=== PATIENT | male | born 1980 | race Caucasian/White ===

== ENCOUNTER 2017-07-09 08:25 | Emergency (ER) | payer BC ==
--- NOTE | 2017-07-09 09:55 | UC ---
Respiratory Complaint HPI - HPI Summary HPI Summary: Pt presents with cough. He tells me that about 3-4 weeks ago he developed a dry cough. He treated himself conservatively with rest and fluids, but his symptoms persisted so he saw his PCP who said it was likely viral. He is here today with worsening symptoms. He feels that he cannot "good a good deep breath" and is experiencing chest congestion with his cough. He has felt warm, but has not taken his temperature. He denies headache, ST, sinus symptoms, SOB, chest pain, abdominal pain, N/V/D/C. - History of Current Complaint Chief Complaint: UCRespiratory Stated Complaint: COUGH Time Seen by Provider: 07/09/17 09:55 Hx Obtained From: Patient Onset/Duration: Gradual Onset Severity Initially: Mild Severity Currently: Moderate Character: Cough: Nonproductive Aggravating Factors: Deep Breaths Associated Signs And Symptoms: Positive: Fever - Allergies/Home Medications Allergies/Adverse Reactions: Allergies Allergy/AdvReac Type Severity Reaction Status Date / Time No Known Allergies Allergy Verified 07/09/17 08:49 Home Medications: Home Medications Multiple Vitamins W/ Minerals [Multivitamin] 1 tab PO DAILY 07/09/17 [History Confirmed 07/09/17] PMH/Surg Hx/FS Hx/Imm Hx Previously Healthy: Yes - Surgical History Surgical History: Yes Surgery Procedure, Year, and Place: tonsilectomy - Family History Known Family History: Positive: None - Social History Occupation: Employed Full-time Lives: With Family Alcohol Use: Rare Substance Use Type: None Smoking Status (MU): Never Smoked Tobacco - Immunization History Most Recent Influenza Vaccination: 03/2017 Review of Systems Constitutional: Fever Skin: Negative Eyes: Negative ENT: Negative Respiratory: Cough Cardiovascular: Negative Gastrointestinal: Negative All Other Systems Reviewed And Are Negative: Yes Physical Exam Triage Information Reviewed: Yes Appearance: Well-Appearing, Well-Nourished Vital Signs: Initial Vital Signs Temp 101.1 F 07/09/17 08:44 Pulse 103 07/09/17 08:44 Resp 18 07/09/17 08:44 BP 120/78 07/09/17 08:44 Pulse Ox 96 07/09/17 08:44 Vital Signs Reviewed: Yes Eyes: Positive: Conjunctiva Clear. Negative: Conjunctiva Inflamed, Discharge ENT: Positive: Hearing grossly normal, Pharynx normal, TMs normal, Uvula midline. Negative: Pharyngeal erythema, Nasal congestion, Nasal drainage, TM bulging, TM dull, TM red, Tonsillar swelling, Tonsillar exudate, Sinus tenderness Neck: Positive: Supple, Nontender, No Lymphadenopathy Respiratory: Positive: Chest non-tender, No respiratory distress, No accessory muscle use, Crackles - RLL, Wheezing - RLL Cardiovascular: Positive: RRR, No Murmur, Pulses Normal Neurological: Positive: Alert Psychological: Positive: Age Appropriate Behavior Skin: Negative: rashes UC Diagnostic Evaluation - Laboratory O2 Sat by Pulse Oximetry: 96 Re-Evaluation - Re-Evaluation First Eval Re-Evaluation Time: 10:45 Change: Improved Comment: Lung sounds significantly improved. Decreased wheezing throughout. Still with mild crackles RLL Respiratory Course/Dx - Course Course Of Treatment: CXR today: IMPRESSION: RIGHT BASILAR LINEAR ATELECTASIS VERSUS PLEUROPARENCHYMAL SCARRING. Duoneb - lung sounds improved. Decreased wheezing throughout. Still with crackles RLL. Pt felt better and was able to get a "deep breath" after duoneb. Clinical dx of pneumonia with atelectasis on CXR. Will treat with Zpak and albuterol. - Differential Dx/Diagnosis Differential Diagnosis/HQI/PQRI: Asthma, Bronchitis, Influenza, Lower Resp Infection, Tuberculosis, Other - Pneumonia. Provider Diagnoses: Pneumonia RLL Discharge - Discharge Plan Condition: Stable Disposition: HOME Prescriptions: Albuterol HFA INHALER* [Ventolin HFA Inhaler*] 2 puff INH Q6H PRN #1 mdi PRN Reason: Sob/Wheezing Azithromycin TAB* [Zithromax TAB (Z-KASSIDY) 250 mg #6 tabs] 2 tab PO .TODAY, THEN 1 DAILY #1 kassidy Patient Education Materials: Atelectasis (ED), Pneumonia (ED) Referrals: Alise Shetty MD [Primary Care Provider] - Additional Instructions: If you develop a fever, SOB, chest pain, new or worsening symptoms - please call your PCP or go to the ED. 1) Take OTC plain Mucinex twice a day for an expectorant 2) Tylenol or Ibuprofen OTC for fever or any discomfort
--- NOTE | 2017-07-09 10:21 | RAD ---
HISTORY: Cough COMPARISONS: None VIEWS: 4: Frontal dual-energy and lateral views of the chest. FINDINGS: CARDIOMEDIASTINAL SILHOUETTE: The cardiomediastinal silhouette is normal. HEIDE: The heide are normal. PLEURA: The costophrenic angles are sharp. No pleural abnormalities are noted. LUNG PARENCHYMA: There is minimal linear opacification of the right lung base ABDOMEN: The upper abdomen is clear. There is no subphrenic gas. BONES AND SOFT TISSUES: No bone or soft tissue abnormalities are noted. OTHER: None. IMPRESSION: RIGHT BASILAR LINEAR ATELECTASIS VERSUS PLEUROPARENCHYMAL SCARRING.
[2017-07-09] MEDS ORDERED: Albuterol/Ipratropium NEB.SOL* Albuterol 2.5 MG/Ipratropium 0.5 MG 3 ML INH ONE (10:30)
[2017-07-09 11:09] VITALS: BP 134/71
== END 2017-07-09 10:57 | disposition home or self-care (01) ==
LOC: UCEAST 08:25
DX: J18.9 Pneumonia, unspecified organism (principal); R91.8 Other nonspecific abnormal finding of lung field
CPT/HCPCS: 71020; 99212; A9270-GY; G0463

== ENCOUNTER 2017-10-06 11:35 | Emergency (ER) | payer BC ==
[2017-10-06 11:43] VITALS: BP 117/76
--- NOTE | 2017-10-06 12:20 | UC ---
Complaint Male HPI - HPI Summary HPI Summary: 37 yo Wm remote h/o kidney stones 15yrs ago c/o dysuria associated with RLQ pain at times radiating to groin x 3 days, denies f/c/LBP - History of Current Complaint Chief Complaint: UCGU Stated Complaint: PAIN W/ URINATION Time Seen by Provider: 10/06/17 12:00 Hx Obtained From: Patient Onset/Duration: Sudden Onset, Lasting Days Severity Initially: Moderate Severity Currently: Mild Pain Intensity: 2 - Allergies/Home Medications Allergies/Adverse Reactions: Allergies Allergy/AdvReac Type Severity Reaction Status Date / Time No Known Allergies Allergy Verified 10/06/17 11:42 PMH/Surg Hx/FS Hx/Imm Hx - Additional Past Medical History Additional PMH: renal stone Previously Healthy: Yes - Surgical History Surgical History: Yes Surgery Procedure, Year, and Place: tonsilectomy - Family History Known Family History: Positive: None - Social History Alcohol Use: Occasionally Substance Use Type: None Smoking Status (MU): Never Smoked Tobacco - Immunization History Most Recent Influenza Vaccination: 03/2017 Review of Systems Constitutional: Negative Skin: Negative Eyes: Negative ENT: Negative Respiratory: Negative Cardiovascular: Negative Gastrointestinal: Other - RLQ pain radiating to groin Genitourinary: Dysuria Motor: Negative Neurovascular: Negative Musculoskeletal: Negative Neurological: Negative Psychological: Negative All Other Systems Reviewed And Are Negative: Yes Physical Exam Triage Information Reviewed: Yes Vital Signs: Initial Vital Signs Temp 36.4 C 10/06/17 11:39 Pulse 73 10/06/17 11:39 Resp 18 10/06/17 11:39 BP 117/76 10/06/17 11:39 Pulse Ox 100 10/06/17 11:39 Eye Exam: Normal ENT Exam: Normal Dental Exam: Normal Neck exam: Normal Neck: Positive: 1 Respiratory Exam: Normal Cardiovascular Exam: Normal Abdominal Exam: Normal Abdomen Description: Positive: Nontender, Soft. Negative: CVA Tenderness (R), CVA Tenderness (L), Distended, Guarding, McBurney's Point Tenderness Musculoskeletal Exam: Normal Neurological Exam: Normal Psychological Exam: Normal Skin Exam: Normal Complaint Male Course/Dx - Course Course Of Treatment: UA negative but given pt's significant dysuria, will tx for UTI. Advised more copious hydration for enhanced passing of stone it at all present. - Differential Dx/Diagnosis Differential Diagnosis/HQI/PQRI: Ureteral Calculi, Urinary Tract Infection Provider Diagnoses: renal colic. UTI Discharge - Discharge Plan Condition: Stable Disposition: HOME Prescriptions: Ciprofloxacin TAB* [Cipro 500 MG TAB*] 500 mg PO BID 10 Days #20 tab Patient Education Materials: Urinary Tract Infection in Men (ED), Renal Colic ( ED) Referrals: Alise Shetty MD [Primary Care Provider] - Additional Instructions: Go to ER if symptoms worsen
== END 2017-10-06 12:45 | disposition home or self-care (01) ==
LOC: UCEAST 11:35
DX: N23 Unspecified renal colic (principal); N39.0 Urinary tract infection, site not specified; Z87.442 Personal history of urinary calculi
CPT/HCPCS: 81003; 99212; G0463

== ENCOUNTER 2017-10-15 07:54 | Emergency (ER) | payer BC ==
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
--- NOTE | 2017-10-15 08:43 | RAD ---
INDICATION: RIGHT lower anterior rib pain following injury 2 days ago. Pain when breathing. COMPARISON: July 09, 2017 TECHNIQUE: Dual energy PA and routine lateral views of the chest were obtained. REPORT: No RIGHT rib fracture visualized within limits of routine PA and lateral chest radiographs. Negative for pulmonary contusion, pleural effusion, or pneumothorax. The heart, pulmonary vasculature, and mediastinal contours are unremarkable. Unremarkable osseous structures and soft tissue contours. IMPRESSION: Negative exam. If there is persistent clinical concern for RIGHT rib fracture consider a dedicated RIGHT unilateral rib series.
--- NOTE | 2017-10-15 10:03 | RAD ---
Indication: Right rib pain after soccer injury. 3 views of the right ribs are reviewed. There is suggestion of cortical irregularity of the right seventh rib posteriorly. This may represent a nondisplaced incomplete fracture. No other fractures are identified. No pneumothorax is noted. IMPRESSION: There is likely a nondisplaced fracture of the right posterior lateral seventh rib.
[2017-10-15 10:04] VITALS: BP 133/84
== END 2017-10-15 10:12 | disposition home or self-care (01) ==
LOC: UCEAST 07:54
DX: S29.9XXA Unspecified injury of thorax, initial encounter (principal); W50.1XXA Accidental kick by another person, initial encounter; Y93.66 Activity, soccer; Y92.39 Other specified sports and athletic area as the place of occurrence of the external cause
CPT/HCPCS: 71046; 99212; G0463

== ENCOUNTER 2018-02-05 07:47 | Emergency (ER) | payer BC ==
[2018-02-05 07:56] VITALS: BP 121/83
--- NOTE | 2018-02-05 08:01 | UC ---
Bite Injury/Animal HPI - HPI Summary HPI Summary: Pt is a 37 y/o M presents to c/o cat bite on right fourth finger. He was bitten last night around 20:00 while trying to cut his cats nails. The canine rubbed along his finger and the bite was pretty deep and bled for a while. 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 No allergies. - History of Current Complaint Chief Complaint: UCBiteInjury Stated Complaint: CAT BITE Time Seen by Provider: 02/05/18 07:52 Hx Obtained From: Patient, Other: - Nurse's Report Severity Currently: Mild Pain Intensity: 2 Pain Scale Used: 0-10 Numeric Onset/Duration: Still Present Type of Bite: Animal - Cat Hx of Bite: Provoked by: - cutting cat's nails - Allergies/Home Medications Allergies/Adverse Reactions: Allergies Allergy/AdvReac Type Severity Reaction Status Date / Time No Known Allergies Allergy Verified 02/05/18 07:56 PMH/Surg Hx/FS Hx/Imm Hx Respiratory History: Asthma - NEGATIVE: Asthma GI/ History: Kidney Stones, Other - IBS Other GI/ History: . - Surgical History Surgical History: Yes Surgery Procedure, Year, and Place: tonsilectomy - Family History Known Family History: Negative: Blood Disorder - Social History Alcohol Use: Occasionally Substance Use Type: None Smoking Status (MU): Never Smoked Tobacco - Immunization History Most Recent Influenza Vaccination: 03/2017 Review of Systems Constitutional: Fever - NEGATIVE: fever Skin: Other - Laceration on right hand 4th finger All Other Systems Reviewed And Are Negative: Yes Physical Exam - Summary Physical Exam Summary: General: well-appearing, no pain distress Skin: right fourth finger distal ulnar aspect, 1 cm laceration without drainage or streaking, not bleeding currently, edges are well approximxated, warm, color reflects adequate perfusion, dry Head: normal Eyes: EOMI, JOHN ENT: normal Neck: supple, nontender Respiratory: CTA, breath sounds present Cardiovascular: RRR Abdomen: soft, nontender Bowel: present Musculoskeletal: normal, strength/ROM intact Neurological: sensory/motor intact, A&O x3 Psychological: affect/mood appropriate Triage Information Reviewed: Yes Bite Injury Course/Dx - Course Course Of Treatment: TDAP GIVEN IN CLINIC. RX AUGMENTIN. THE CAT IS THE PATIENT'S AND THE PATIENT IS IMMUNIZED FOR RABIES, HE IS A VETRINARIAN. BITE FOR COMPLETED. RECHECK IF WORSE. - Differential Dx/Diagnosis Provider Diagnoses: CAT BITE RIGHT 4TH FINGER Discharge - Sign-Out/Discharge Documenting (check all that apply): Patient Departure - Discharge Plan Condition: Stable Disposition: HOME Prescriptions: Amoxicillin/Clavulanate TAB* [Augmentin TAB 875*] 875 mg PO BID #20 tab Patient Education Materials: Animal Bite (ED) Referrals: Alise Shetty MD [Primary Care Provider] - Additional Instructions: FOLLOW UP WITH YOUR DOCTOR IF NOT COMPLETELY IMPROVED. GET RECHECKED FOR ANY WORSENING OF YOUR CONDITION OR QUESTIONS OR CONCERNS. - Billing Disposition and Condition Condition: STABLE Disposition: Home
[2018-02-05] MEDS ORDERED: Tetan/Diph/Pertus SYR(Tdap)* 0.5 ML SYR(BOOSTRIX) use SYR IM ONE (08:03)
== END 2018-02-05 08:11 | disposition home or self-care (01) ==
LOC: UCEAST 07:47
DX: S61.254A Open bite of right ring finger without damage to nail, initial encounter (principal); J45.909 Unspecified asthma, uncomplicated; X58.XXXA Exposure to other specified factors, initial encounter; W55.01XA Bitten by cat, initial encounter; Y92.9 Unspecified place or not applicable
CPT/HCPCS: 90471; 90715; 99211; G0463

== ENCOUNTER 2019-01-10 18:58 | Emergency (ER) | payer BC ==
[2019-01-10 19:22] VITALS: BP 109/63
[2019-01-10] MEDS ORDERED: Ciprofloxacin 0.3% OPTH.SOL* BTL ONE (19:33)
== END 2019-01-10 19:42 | disposition home or self-care (01) ==
LOC: UCEAST 18:58
DX: Z53.8 Procedure and treatment not carried out for other reasons (principal)
CPT/HCPCS: 99212; A9270-GY; G0463

== ENCOUNTER 2019-03-06 16:55 | Emergency (ER) | payer BC ==
--- NOTE | 2019-03-06 17:07 | UC ---
General HPI - HPI Summary HPI Summary: 38 yo male presents with body aches, fatigue, and joint pain since yesterday. He tells me that on 03/03 and 03/04 he went for a run, which he usually does for exercise - was not longer or more intense than usual. On 03/05 he developed fatigue, body aches, and joint pain that have persisted into today. He has felt feverish, bust has not taken anything OTC for his discomfort. He notes that about 1 week ago he was camping outdoors and removed a tick from his left hip that could have been attached around 36 hours - he is unsure. He also has had sick contacts dx'd with strep. He denies sinus symptoms, cough, SOB, chest pain , abdominal pain, n/v/d/c, dysuria, back pain, headache, dizziness. - History of Current Complaint Stated Complaint: FLU-LIKE SYMPTOMS, HAD A TICK LAST WEEK Time Seen by Provider: 03/06/19 17:07 Hx Obtained From: Patient Onset/Duration: Sudden Onset Onset Severity: Moderate Current Severity: Moderate Pain Intensity: 7 - Allergy/Home Medications Allergies/Adverse Reactions: Allergies Allergy/AdvReac Type Severity Reaction Status Date / Time No Known Allergies Allergy Verified 01/10/19 19:22 Home Medications: Home Medications Ibuprofen [Advil] 200 mg PO 03/06/19 [History] PMH/Surg Hx/FS Hx/Imm Hx - Additional Past Medical History Additional PMH: None - Surgical History Surgical History: Yes Surgery Procedure, Year, and Place: tonsilectomy - Family History Known Family History: Positive: None Negative: Blood Disorder - Social History Occupation: Employed Full-time Lives: With Family Alcohol Use: Occasionally Substance Use Type: None Smoking Status (MU): Never Smoked Tobacco - Immunization History Most Recent Influenza Vaccination: 03/2017 Review of Systems All Other Systems Reviewed And Are Negative: Yes Constitutional: Positive: Fever, Fatigue, Other - Body aches Skin: Positive: Negative Eyes: Positive: Negative ENT: Positive: Negative Respiratory: Positive: Negative Cardiovascular: Positive: Negative Gastrointestinal: Positive: Negative Genitourinary: Positive: Negative Motor: Positive: Negative Neurovascular: Positive: Negative Musculoskeletal: Positive: Arthralgia Neurological: Positive: Negative Psychological: Positive: Negative Physical Exam - Summary Physical Exam Summary: GENERAL: NAD. WDWN. No pain distress. SKIN: No rashes, sores, or open wounds. HEENT: Head: AT/NC Eyes: PERRLA. EOM intact. Conjunctiva clear without inflammation or discharge. Ears: Hearing grossly normal. TMs intact, no bulging, erythema, or edema. Nose: Nasal mucosa pink and moist. NTTP maxillary and frontal sinus. Throat: Posterior oropharynx without exudates, erythema, or tonsillar enlargement. Uvula midline. NECK: Supple. Nontender. No lymphadenopathy. CHEST: CTAB. No r/r/w. No accessory muscle use. Breathing comfortably and in no distress. CV: RRR. Without m/r/g. Pulses intact. Brisk cap refill. ABDOMEN: Soft. NTTP. No distention or guarding. No CVA tenderness. Bowel sounds present MSK: FROM and 5/5 strength throughout. No edema. NEURO: Alert. PSYCH: Age appropriate behavior. Triage Information Reviewed: Yes Vital Signs: Vital Signs: Temp Pulse Resp BP Pulse Ox 102.5 F 98 18 124/76 97 03/06/19 17:03 03/06/19 17:03 03/06/19 17:03 03/06/19 17:03 03/06/19 17:03 Laboratory Tests 03/06/19 03/06/19 17:22 17:30 Influenza A (Rapid) Negative Influenza B (Rapid) Negative Group A Strep Rapid Negative Vital Signs Reviewed: Yes Course/Dx - Course Course Of Treatment: POC strep and flu negative. UA negative. I discussed with the pt that his symptoms could be due to lyme disease, but this presentation seems quite early for a tick bite last week. I discussed with him that testing for lyme does not show positive until 4-6 weeks after a tick bite, but still recommended testing today as well as other labwork (CBC/CMP) as he could have been bitten by ticks in the past without knowledge. He declined labwork or further testing today and wishes to be treated for lyme disease. I encouraged him to f/u with his PCP if his symptoms have not improved in 3-4 days. - Diagnoses Provider Diagnosis: Fever, Body aches, Joint pain Discharge - Sign-Out/Discharge Documenting (check all that apply): Patient Departure All imaging exams completed and their final reports reviewed: No Studies - Discharge Plan Condition: Stable Disposition: HOME Prescriptions: DOXYcycline CAP(*) [DOXYcycline 100MG CAP(*)] 100 mg PO BID #28 cap Patient Education Materials: Lyme Disease (ED), Fever in Adults (ED) Referrals: Alise Shetty MD [Primary Care Provider] - 3 Days Additional Instructions: If you develop a fever, shortness of breath, chest pain, new or worsening symptoms - please call your PCP or go to the ED immediately. You are being treated for possible lyme disease. If your symptoms do not improve within 3-4 days, please be rechecked - Billing Disposition and Condition Condition: STABLE Disposition: Home
[2019-03-06 17:14] VITALS: BP 124/76
[2019-03-06] MEDS ORDERED: Acetaminophen TAB* 325 MG PO ONE ×2 (17:16→18:00)
[2019-03-06 17:35] LABS: Influenza A Molecular NEGATIVE (Negative); Influenza B Molecular NEGATIVE (Negative)
== END 2019-03-06 18:25 | disposition home or self-care (01) ==
LOC: UCEAST 16:55
DX: R53.83 Other fatigue (principal); R50.9 Fever, unspecified; M79.10 Myalgia, unspecified site
CPT/HCPCS: 81002; 87651; 99212; A9270-GY; G0463

== ENCOUNTER 2019-10-10 10:42 | Emergency (ER) | payer BC, OTHER ==
[2019-10-10 11:14] VITALS: BP 123/79
--- NOTE | 2019-10-10 11:56 | UC ---
Throat Pain/Nasal Gregorio HPI - HPI Summary HPI Summary: 39 yo male presents with sore throat. He tells me that for the last month he has had a sore throat that has been coming and going. Hurts to swallow. He has taken ibuprofen with little relief. He is eating, drinking, and tolerating po well. He does not smoke. No voice changes. Denies fever, chills, sick contacts, sinus symptoms, cough, rash, SOB, chest pain. - History of Current Complaint Chief Complaint: UCGeneralIllness Stated Complaint: SORE THROAT Time Seen by Provider: 10/10/19 11:56 Hx Obtained From: Patient Onset/Duration: Sudden Onset Severity: Moderate Pain Intensity: 5 Pain Scale Used: 0-10 Numeric - Allergies/Home Medications Allergies/Adverse Reactions: Allergies Allergy/AdvReac Type Severity Reaction Status Date / Time No Known Allergies Allergy Verified 10/10/19 11:14 Home Medications: Home Medications Amoxicillin PO (*) [Amoxicillin 500 MG CAP*] 500 mg PO Q12H #14 cap 10/10/19 [Rx ] PMH/Surg Hx/FS Hx/Imm Hx - Additional Past Medical History Additional PMH: None - Surgical History Surgical History: Yes Surgery Procedure, Year, and Place: tonsilectomy - Family History Known Family History: Positive: None Negative: Blood Disorder - Social History Alcohol Use: Occasionally Substance Use Type: None Smoking Status (MU): Never Smoked Tobacco - Immunization History Most Recent Influenza Vaccination: 03/2017 Review of Systems All Other Systems Reviewed And Are Negative: No Constitutional: Positive: Negative Skin: Positive: Negative Eyes: Positive: Negative ENT: Positive: Sore Throat Respiratory: Positive: Negative Cardiovascular: Positive: Negative Gastrointestinal: Positive: Negative Neurological/Mental Status: Positive: Negative Psychological: Positive: Negative Physical Exam - Summary Physical Exam Summary: GENERAL: NAD. WDWN. No pain distress. SKIN: No rashes, sores, lesions, or open wounds. HEENT: Head: AT/NC Eyes: EOM intact. Conjunctiva clear without inflammation or discharge. Ears: Hearing grossly normal. TMs intact, no bulging, erythema, or edema. Nose: Nasal mucosa pink and moist. NTTP maxillary and frontal sinus. Throat: Posterior oropharynx without exudates, erythema, or tonsillar enlargement. Uvula midline. NECK: Supple. Nontender. No lymphadenopathy. CHEST: CTAB. No r/r/w. No accessory muscle use. Breathing comfortably and in no distress. CV: RRR. Pulses intact. Cap refill <2seconds NEURO: Alert. PSYCH: Age appropriate behavior. Triage Information Reviewed: Yes Vital Signs: Initial Vital Signs Temp 97.6 F 10/10/19 11:12 Pulse 70 10/10/19 11:12 Resp 16 10/10/19 11:12 BP 123/79 10/10/19 11:12 Pulse Ox 100 10/10/19 11:12 Laboratory Tests 10/10/19 12:06 Group A Strep Rapid Negative Vital Signs Reviewed: Yes Throat Pain/Nasal Course/Dx - Course Course Of Treatment: POC strep negative. Discussed viral vs bacterial with pt and he prefers to trial anbx at this time. Will refer him to ENT for further evaluation given 1 month of persistent symptoms with normal appearing exam. - Differential Dx/Diagnosis Provider Diagnosis: Pharyngitis Discharge ED - Sign-Out/Discharge Documenting (check all that apply): Patient Departure All imaging exams completed and their final reports reviewed: No Studies - Discharge Plan Condition: Stable Disposition: HOME Prescriptions: Amoxicillin PO (*) [Amoxicillin 500 MG CAP*] 500 mg PO Q12H #14 cap Patient Education Materials: Pharyngitis (ED) Referrals: Alise Shetty MD [Primary Care Provider] - Dawood Blackwell MD [Medical Doctor] - As Soon As Possible Additional Instructions: If you develop a fever, shortness of breath, chest pain, new or worsening symptoms - please call your PCP or go to the ED immediately. I recommend that you call ENT at the number below to schedule an appointment for further evaluation - Billing Disposition and Condition Condition: STABLE Disposition: Home
== END 2019-10-10 12:35 | disposition home or self-care (01) ==
LOC: UCEAST 10:42
DX: J02.9 Acute pharyngitis, unspecified (principal)
CPT/HCPCS: 87651; 99212; G0463